=== PATIENT | female | born 1945 | race Caucasian/White ===

== ENCOUNTER 2024-07-26 06:15 | Day surgery (SDC) | payer MEDICARE, OTHER ==
[2024-07-26] MEDS ORDERED: Ketamine 500 mg/10 ML MDV IV ONE (06:16)
[2024-07-26] MEDS ORDERED: Propofol 200 MG/20 ML SDV IV ONE (06:16)
[2024-07-26] MEDS ORDERED: Lidocaine 2% 100 MG/5 ML Syringe IVPUSH ONE (06:16)
[2024-07-26] MEDS ORDERED: Sodium Chloride 0.9% 10 ML Syringe FLUSH PRN (06:30)
[2024-07-26] MEDS: Lactated Ringers 1,000 ML IV SCH (07:30)
== END 2024-07-26 11:25 | disposition home or self-care (01) ==
LOC: FB.SDS 06:15
PROVIDERS: ATTEND Surgery
DX: Z12.11 Encounter for screening for malignant neoplasm of colon (principal); K57.30 Diverticulosis of large intestine without perforation or abscess without bleeding; Z86.0101 Personal history of adenomatous and serrated colon polyps; I10 Essential (primary) hypertension; E11.42 Type 2 diabetes mellitus with diabetic polyneuropathy; F32.A Depression, unspecified; Z79.4 Long term (current) use of insulin; Z79.899 Other long term (current) drug therapy; Z79.84 Long term (current) use of oral hypoglycemic drugs; Z79.82 Long term (current) use of aspirin
CPT/HCPCS: 00811; 82947; 99100; J2704; J3490; J7120